=== PATIENT | female | born 1985 | race African-American/Black ===

== ENCOUNTER 2019-12-25 17:37 | Emergency (ER) | payer SELFPAY ==
[~2019-12-25] VITALS: Ht 165.1 cm; Wt 76.2 kg
[2019-12-25 17:50] VITALS: BP 128/84
--- NOTE | 2019-12-25 17:50 | NUR ---
ED Nurse Note: Pt came in ER d/t RT side migraine for 3-4 days. Pt is AOx4, calm and cooperative. VSS, on RA. Placed on bed, will continue to monitor.
[2019-12-25] MEDS ORDERED: Dexamethasone 4mg/ml vial IM ONE (18:15)
--- NOTE | 2019-12-25 18:47 | Emergency Room Report ---
History of Present Illness General Chief Complaint: Headache Source: Patient Present Illness HPI 34-year-old female who reports has chronic history of migraine headache multiple occurrences any given year currently on Imitrex and Excedrin here complaining of worsening migraine headache x3 days. Patient also reports that she is been having increased nausea and vomiting. Reports that prior to coming here went to an urgent care was given an injection of Reglan and was told to go to the emergency room for further evaluation of migraine headache. Patient rating pain 10 out of 10 unilateral with photophobia. Reports that she also took tramadol at home which did not help is asking for combination of Dilaudid and Benadryl as well as Zofran for migraine headache. Reports that has not been seen to neurologist in many years and has not been diagnosed with migraine headache coming from neurologist. Patient keeps saying a Toradol and everything within the Motrin family do not help. Also reports that she cracked her tooth few days ago which has increased her headache. Has not yet been seen by a dentist. Denies fever and chills. Reports that she uses marijuana on a daily basis to help her with pain. Upon my arrival to the room asked for back to vomit however when I tell her that she cannot be given any Dilaudid or any narcotics for migraine headache she stops vomiting, speaks in full sentences, follows me outside of the room and asks for narcotics. Drug-seeking behavior noted. Allergies: Coded Allergies: No Known Allergies (Unverified , 12/25/19) Patient History Past Medical History: see triage record Past Surgical History: unable to obtain Pertinent Family History: none Social History: Reports: drug use - Daily use of marijuana Last Menstrual Period: 12/09/2019 Now: No Immunizations: UTD Reviewed Nursing Documentation: PMH: Agreed; PSxH: Agreed Nursing Documentation-PMH Past Medical History: No Stated History Review of Systems All Other Systems: negative except mentioned in HPI Physical Exam Vital Signs Date Time Temp Pulse Resp B/P (MAP) Pulse Ox O2 Delivery O2 Flow Rate FiO2 12/25/19 17:42 98.2 100 16 128/84 (99) 98 Room Air Sp02 EP Interpretation: reviewed, normal General Appearance: no apparent distress, alert, GCS 15, non-toxic Head: normocephalic, atraumatic Eyes: bilateral eye normal inspection, bilateral eye PERRL ENT: hearing grossly normal, normal pharynx, no angioedema, normal voice Neck: full range of motion, supple/symm/no masses Respiratory: chest non-tender, lungs clear, normal breath sounds, no wheezing, speaking full sentences Cardiovascular #1: regular rate, rhythm, no edema, no murmur Gastrointestinal: normal bowel sounds, non tender, soft, non-distended, no guarding, no rebound Rectal: deferred Genitourinary: no CVA tenderness Musculoskeletal: back normal, normal range of motion, gait/station normal, non- tender Neurologic: alert, motor strength/tone normal, oriented x3, sensory intact, responsive, speech normal Psychiatric: judgement/insight normal, memory normal, mood/affect normal, no suicidal/homicidal ideation Skin: no rash Lymphatic: normal inspection Medical Decision Making PA Attestation All my diagnosis and treatment plans were reviewed ad discussed with my supervising physician Dr. Morales Diagnostic Impression: Primary Impression: Chronic headache Additional Impression: Toothache ER Course 34-year-old female who reports has chronic history of migraine headache multiple occurrences any given year currently on Imitrex and Excedrin here complaining of worsening migraine headache x3 days. Patient also reports that she is been having increased nausea and vomiting. Reports that prior to coming here went to an urgent care was given an injection of Reglan and was told to go to the emergency room for further evaluation of migraine headache. Patient rating pain 10 out of 10 unilateral with photophobia. Reports that she also took tramadol at home which did not help is asking for combination of Dilaudid and Benadryl as well as Zofran for migraine headache. Reports that has not been seen to neurologist in many years and has not been diagnosed with migraine headache coming from neurologist. Patient keeps saying a Toradol and everything within the Motrin family do not help. Also reports that she cracked her tooth few days ago which has increased her headache. Has not yet been seen by a dentist. Denies fever and chills. Reports that she uses marijuana on a daily basis to help her with pain. Upon my arrival to the room asked for back to vomit however when I tell her that she cannot be given any Dilaudid or any narcotics for migraine headache she stops vomiting, speaks in full sentences, follows me outside of the room and asks for narcotics. Drug-seeking behavior noted. Ddx considered but are not limited to: Migraine headache with aura, migraine headache without aura, tension headache, cluster headache, TBI, subarachnoid hemorrhage Vital signs: are WNL, pt. is afebrile H&PE are most consistent with: Chronic headache, to take ORDERS: Prednisone, Zofran, Benadryl, Motrin, amoxicillin ER intervention: Dexamethasone, Benadryl p.o., Zofran IM, patient maria esther for IM Benadryl however I gave p.o. as patient is asking for Benadryl IM to be combined with Dilaudid DISCHARGE: At this time pt. is stable for d/c to home. Will provide printed patient care instructions, and any necessary prescriptions. Care plan and follow up instructions have been discussed with the patient prior to discharge. Patient to follow-up with primary care provider also pain management needed I advised her that narcotics are not the treatment for migraine headache. Patient needs to be diagnosed and tested by a neurologist, continue taking Imitrex as needed. Last Vital Signs Date Time Temp Pulse Resp B/P (MAP) Pulse Ox O2 Delivery O2 Flow Rate FiO2 12/25/19 17:50 98.2 82 16 128/84 98 Room Air Disposition: HOME, SELF-CARE Condition: Stable Scripts Prednisone* (PREDNISONE*) 20 Mg Tablet 40 MG ORAL DAILY for 5 Days, #10 TAB Prov: Marilyn Aragon 12/25/19 Amoxicillin* (AMOXIL*) 500 Mg Capsule 500 MG ORAL EVERY 8 HOURS for 10 Days, #30 CAP Prov: Marilyn Aragon 12/25/19 Ibuprofen (Ibu) 800 Mg Tablet 800 MG PO BID, #14 TAB Prov: Marilyn Aragon 12/25/19 Diphenhydramine Hcl* (BENADRYL*) 25 Mg Capsule 25 MG ORAL Q6H PRN for Itching, #20 CAP Prov: Marilyn Aragon 12/25/19 Ondansetron (Zofran) 4 Mg Tablet 4 MG ORAL Q6H PRN for Nausea & Vomiting, #10 TAB Prov: Marilyn Aragon 12/25/19 Patient Instructions: Cluster Headache, Dental Pain, [id number], Migraine Headache Additional Instructions: Take medication as directed, follow-up with your neurologist regarding management of your migraine headache, narcotics are not indicated in migraine headaches. Follow-up with your dentist regarding your toothache Marilyn Aragon Dec 25, 2019 18:47
[2019-12-25] MEDS ORDERED: PREDNISONE20 MG ORAL (18:49)
[2019-12-25] MEDS ORDERED: ZOFRAN4 M1 ORAL (18:49)
[2019-12-25] MEDS ORDERED: BENADRYL25 MG ORAL (18:49)
[2019-12-25] MEDS ORDERED: IBU800 MG PO (18:49)
[2019-12-25] MEDS ORDERED: AMOXICILLIN500 MG ORAL (18:49)
[2019-12-25 19:07] VITALS: BP 124/82
--- NOTE | 2019-12-25 19:07 | NUR ---
ER DISCHARGE NOTE: Patient is cleared to be discharged per ERPA, pt is aox4, on room air, with stable vital signs. pt was given dc and prescription instructions, pt was able to verbalize understanding, pt id band removed. pt is able to ambulate with steady gait. pt took all belongings.
== END 2019-12-25 19:07 | disposition home or self-care (01) ==
LOC: EMR 18:00
DX: R51 Headache (principal); K08.89 Other specified disorders of teeth and supporting structures; R11.2 Nausea with vomiting, unspecified
CPT/HCPCS: 96372; 99283; J1100; J2405